=== PATIENT | male | born 1965 | race Caucasian/White ===

== ENCOUNTER 2019-08-03 20:04 | Emergency (ER) | payer OTHER ==
[2019-08-03] MEDS ORDERED: ONDANSETRON 4 MG/2 ML VIAL ONE (20:36)
[2019-08-03] MEDS ORDERED: MORPHINE 4 MG/ML SYR ONE ×2 (20:36→22:41)
[2019-08-03] MEDS ORDERED: NA CHLORIDE 0.9% 2,000 ML ONE (20:36)
[2019-08-03] MEDS ORDERED: KETOROLAC 30 MG/ML INJ ONE (20:36)
[2019-08-03] MEDS ORDERED: DIAZEPAM 10 MG/2 ML INJ SYRINGE ONE (20:36)
[2019-08-03 20:57] LABS: Basophils % 0.2 % (0-1.3); Hematocrit 48.3 % (39.6-49.0); Lymphocytes % 6.8 % (15.3-44.8); MPV 9.8 fL (7.6-11.3); RBC Red Blood Cell Count 5.54 M/uL (4.33-5.43)
[2019-08-03 21:15] LABS: Albumin 3.9 g/dL (3.4-5.0); Bilirubin Direct 0.2 mg/dL (0-0.2); Bilirubin Total 0.7 mg/dL (0.2-1.0); Potassium 4.6 mmol/L (3.5-5.1)
[2019-08-03 21:18] LABS: Blood Morphology Comment NOT SEEN (NOT SEEN); Platelet Estimate ADEQ; Urine White Blood Cell Casts OK
[2019-08-03] MEDS ORDERED: dexAMETHasone 10 MG/ML VIAL ONE (21:22)
--- NOTE | 2019-08-03 21:27 | EDPHYS ---
Physician Documentation [facility] Name: Hawk Guido Age: 54 yrs Sex: Male : 1965 Arrival Date: 08/03/2019 Time: 20:07 Bed 25 Private MD: ED Physician Robbie Holt HPI: 08/03 20:31 This 54 yrs old Male presents to ER via Wheelchair with complaints of Back chito Pain, Fall Injury. 20:31 The patient presents with pain that is acute. The symptoms are located in the low back. chito Onset: The symptoms/episode began/occurred just prior to arrival. The pain radiates to the lumbar area, left low back and right low back. Associated signs and symptoms: Pertinent positives: abdominal pain. The problem was sustained during a fall. Modifying factors: The patient symptoms are alleviated by remaining still, the patient symptoms are aggravated by any movement, bending, coughing, lifting, movement, standing, walking. The patient has not experienced similar symptoms in the past. 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 - Social history:: Smoking status: Patient/guardian denies using tobacco. - Immunization history: Last tetanus immunization: unknown. - Ebola Screening: : No symptoms or risks identified at this time. - Family history:: not pertinent. ROS: 20:31 Eyes: Negative for injury, pain, redness, and discharge, ENT: Negative for injury, chito pain, and discharge, Neck: Negative for injury, pain, and swelling, Cardiovascular: Negative for chest pain, palpitations, and edema, Respiratory: Negative for shortness of breath, cough, wheezing, and pleuritic chest pain, Abdomen/GI: Negative for abdominal pain, nausea, vomiting, diarrhea, and constipation, : Negative for injury, bleeding, discharge, and swelling, MS/Extremity: Negative for injury and deformity, Neuro: Negative for headache, weakness, numbness, tingling, and seizure, Psych: Negative for depression, anxiety, suicide ideation, homicidal ideation, and hallucinations, Allergy/Immunology: Negative for hives, rash, and allergies, Endocrine: Negative for neck swelling, polydipsia, polyuria, polyphagia, and marked weight changes, Hematologic/Lymphatic: Negative for swollen nodes, abnormal bleeding, and unusual bruising. 20:31 Back: Positive for injury or acute deformity, decreased range of motion, pain at rest, pain with movement, radiated pain, of the lumbar area, left low back and right low back. Exam: 20:31 Head/Face: Normocephalic, atraumatic. Eyes: Pupils equal round and reactive to light, chito extra-ocular motions intact. Lids and lashes normal. Conjunctiva and sclera are non-icteric and not injected. Cornea within normal limits. Periorbital areas with no swelling, redness, or edema. ENT: Nares patent. No nasal discharge, no septal abnormalities noted. Tympanic membranes are normal and external auditory canals are clear. Oropharynx with no redness, swelling, or masses, exudates, or evidence of obstruction, uvula midline. Mucous membranes moist. Neck: Trachea midline, no thyromegaly or masses palpated, and no cervical lymphadenopathy. Supple, full range of motion without nuchal rigidity, or vertebral point tenderness. No Meningismus. Chest/axilla: Normal chest wall appearance and motion. Nontender with no deformity. No lesions are appreciated. Cardiovascular: Regular rate and rhythm with a normal S1 and S2. No gallops, murmurs, or rubs. Normal PMI, no JVD. No pulse deficits. Respiratory: Lungs have equal breath sounds bilaterally, clear to auscultation and percussion. No rales, rhonchi or wheezes noted. No increased work of breathing, no retractions or nasal flaring. Abdomen/GI: Soft, non-tender, with normal bowel sounds. No distension or tympany. No guarding or rebound. No evidence of tenderness throughout. Male : Normal genitalia with no discharge or lesions. MS/ Extremity: Pulses equal, no cyanosis. Neurovascular intact. Full, normal range of motion. Neuro: Awake and alert, GCS 15, oriented to person, place, time, and situation. Cranial nerves II-XII grossly intact. Motor strength 5/5 in all extremities. Sensory grossly intact. Cerebellar exam normal. Normal gait. Psych: Awake, alert, with orientation to person, place and time. Behavior, mood, and affect are within normal limits. 20:31 Constitutional: The patient appears in obvious distress, mildly distressed, moderately distressed. 20:31 Back: pain, that is moderate, ROM is painful, with all movement, normal spinal alignment noted, CVA tenderness, is absent, vertebral tenderness, is appreciated at lumbar spine, muscle spasm, is appreciated in the left low back, left mid back, right mid back and right low back. Vital Signs: 20:21 BP 138 / 84; Pulse 93; Resp 18; Temp 98; Pulse Ox 96% on R/A; Weight 94.35 kg; Height 5 lp1 ft. 9 in. (175.26 cm); Pain 10/10; 21:20 BP 129 / 81; Pulse 72; Resp 18; Pulse Ox 95% on 2 lpm NC; aj1 22:53 BP 142 / 81; Pulse 81; Resp 18; Temp 98; Pulse Ox 100% on 2 lpm NC; mg2 20:21 Body Mass Index 30.72 (94.35 kg, 175.26 cm) lp1 [place] Coma Score: 20:24 Eye Response: spontaneous(4). Verbal Response: oriented(5). Motor Response: obeys lp1 commands(6). Total: 15. Trauma Score (Adult): 20:24 Eye Response: spontaneous(1); Verbal Response: oriented(1); Motor Response: obeys lp1 commands(2); Systolic BP: > 89 mm Hg(4); Respiratory Rate: 10 to 29 per min(4); Sierra Score: 15; Trauma Score: 12 21:20 Eye Response: spontaneous(1); Verbal Response: oriented(1); Motor Response: obeys aj1 commands(2); Systolic BP: > 89 mm Hg(4); Respiratory Rate: 10 to 29 per min(4); [place] Score: 15; Trauma Score: 12 MDM: 20:15 Patient medically screened. [facility] 20:35 Data reviewed: vital signs, nurses notes, lab test result(s), radiologic studies, CT chito scan. 08/03 20:31 Order name: Basic Metabolic Panel; Complete Time: 21:20 [facility] 08/03 20:31 Order name: CBC with Diff; Complete Time: 21:20 [facility] 08/03 20:31 Order name: Creatinine for Radiology; Complete Time: 21:20 [facility] 08/03 20:31 Order name: Type And Screen; Complete Time: 21:47 [facility] 08/03 20:31 Order name: Lipase; Complete Time: 21:20 [facility] 08/03 20:31 Order name: LFT's; Complete Time: 21:20 [facility] 08/03 20:31 Order name: Foot Right 3 View XRAY [facility] 08/03 20:31 Order name: CT Traumagram (Head C Spine CAP W Con) [facility] 08/03 21:18 Order name: CBC Smear Scan; Complete Time: 21:20 [facility] 08/03 22:36 Order name: Urine Dipstick--Ancillary (enter results) [facility] 08/03 20:31 Order name: Labs collected and sent; Complete Time: 20:48 [facility] 08/03 20:31 Order name: Urine Dipstick-Ancillary (obtain specimen); Complete Time: 22:43 [facility] Administered Medications: 20:48 Drug: NS 0.9% 1000 ml Route: IV; Rate: 1 bolus; Site: left antecubital; aj1 22:40 Follow up: Response: No adverse reaction; IV Status: Completed infusion; IV Intake: mg2 1000ml 20:49 Drug: TORadol 30 mg Route: IVP; Site: left antecubital; aj1 21:31 Follow up: Response: No adverse reaction aj1 20:49 Drug: morphine 4 mg {Note: RASS score 0 patient is alert.} Route: IVP; Site: left aj1 antecubital; 21:31 Follow up: Response: No adverse reaction; Pain is decreased; RASS: Alert and Calm (0) aj1 20:50 Drug: Zofran 4 mg Route: IVP; Site: left antecubital; aj1 21:32 Follow up: Response: No adverse reaction aj1 20:50 Drug: Valium 5 mg Route: IVP; Site: left antecubital; aj1 21:32 Follow up: Response: No adverse reaction aj1 21:31 Drug: Decadron - Dexamethasone 10 mg Route: IVP; Site: left antecubital; aj1 21:47 Follow up: Response: No adverse reaction aj1 22:43 Drug: NS 0.9% 1000 ml Route: IV; Rate: 1 bolus; Site: left antecubital; mg2 22:43 Follow up: IV Status: Order to discontinue infusion; IV Intake: 200ml mg2 22:51 Drug: morphine 4 mg Route: IVP; Site: left antecubital; mg2 22:52 Follow up: Response: No adverse reaction; administered prior to transfer. mg2 Disposition: 08/03/19 21:26 Transfer ordered to [facility]. Diagnosis are Fall (on) (from) other stairs and steps, Fracture of lumbar vertebra, Contusion of foot - calcaneal, Unspecified kidney failure - insufficency, Elevated white blood cell count, Unstable burst fracture of first lumbar vertebra - lumbar 1. - Reason for transfer: Higher level of care. - Accepting physician is to , trauma. - Condition is Fair. - Problem is new. - Symptoms have improved. Signatures: Dispatcher [employer] Britt Campos RN RN ajRobbie Camejo MD MD cha Therrien, Shelly, CONSUMER EDUCATOR-C CONSUMER EDUCATOR-Csnw Chandni Amaya RN RN lp1 Kulwant Wills RN RN mg2 Corrections: (The following items were deleted from the chart) 21:38 21:26 08/03/2019 21:26 Transfer ordered to [facility]. chito Diagnosis is Fall (on) (from) other stairs and steps; Fracture of lumbar vertebra; Contusion of foot - calcaneal. Reason for transfer: Higher level of care. Accepting physician is to [facility] trauma. Condition is Fair. Problem is new. Symptoms have improved. chito 21:52 21:38 08/03/2019 21:26 Transfer ordered to [facility]. chito Diagnosis is Fall (on) (from) other stairs and steps; Fracture of lumbar vertebra; Contusion of foot - calcaneal; Unspecified kidney failure - insufficency; Elevated white blood cell count. Reason for transfer: Higher level of care. Accepting physician is to , trauma. Condition is Fair. Problem is new. Symptoms have improved. chito 22:56 21:52 08/03/2019 21:26 Transfer ordered to [facility]. mg2 Diagnosis is Fall (on) (from) other stairs and steps; Fracture of lumbar vertebra; Contusion of foot - calcaneal; Unspecified kidney failure - insufficency; Elevated white blood cell count; Unstable burst fracture of first lumbar vertebra - lumbar 1. Reason for transfer: Higher level of care. Accepting physician is to [facility], trauma. Condition is Fair. Problem is new. Symptoms have improved. chito
--- NOTE | 2019-08-03 21:27 | ER ---
Nurse's Notes [facility] Name: Hawk Guido Age: 54 yrs Sex: Male : 1965 Arrival Date: 08/03/2019 Time: 20:07 Bed 25 Private MD: Diagnosis: Fall (on) (from) other stairs and steps;Fracture of lumbar vertebra;Contusion of foot-calcaneal;Unspecified kidney failure-insufficency;Elevated white blood cell count;Unstable burst fracture of first lumbar vertebra-lumbar 1 Presentation: 08/03 20:20 Presenting complaint: Patient states: Was working on roof when ladder slipped, patient lp1 fell off room about 10 feet up, landing on right heel of foot and onto back; Complaint of pain to lower back, pain when repositioning legs, states feeling tight; Denies hitting head. Transition of care: patient was not received from another setting of care. Onset of symptoms was August 03, 2019 at 11:30. Risk Assessment: Do you want to hurt yourself or someone else? Patient reports no desire to harm self or others. Initial Sepsis Screen: Does the patient meet any 2 criteria? No. Patient's initial sepsis screen is negative. Does the patient have a suspected source of infection? No. Patient's initial sepsis screen is negative. Care prior to arrival: None. 20:20 Method Of Arrival: Wheelchair lp1 20:20 Acuity: SHAUN 2 lp1 20:23 Mechanism of Injury: Fall from roof approximately 10 feet. Trauma event details: Injury lp1 occurred in the [facility], Injury occurred: at home. Injury occurred: August 03, 2019 Injury occurred at: 11:30. 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 - Social history:: Smoking status: Patient/guardian denies using tobacco. - Immunization history: Last tetanus immunization: unknown. - Ebola Screening: : No symptoms or risks identified at this time. - Family history:: not pertinent. Screenin:23 Abuse screen: Denies threats or abuse. Denies injuries from another. Nutritional lp1 screening: No deficits noted. Tuberculosis screening: No symptoms or risk factors identified. 22:54 Fall Risk Fall in past 12 months (25 points). IV access (20 points). Gait- Weak (10 mg2 pts.). Primary Survey: 20:20 Exposure/Environment: There is no evidence of uncontrolled external bleeding. aj1 20:23 NO uncontrolled hemorrhage observed. A: The patient is alert. Airway: patent, No lp1 supplemental oxygen in use on arrival. Breathing/Chest: Respiratory pattern: regular, Chest inspection: symmetrical rise and fall of the chest. Circulation: Skin temperature: warm, dry. Disability Alert. 21:20 Reassessment Airway Airway Patent Breathing/Chest Respiratory pattern Regular aj1 Respiratory effort Spontaneous Unlabored Breath sounds Clear Chest inspection Symmetrical Circulation Heart tones Present Pulses Palpable Color Crucible Temperature Warm Dry. Secondary Survey: 20:20 HEENT: No deficits noted. Gastrointestinal: No deficits noted. : No deficits noted. aj1 Musculoskeletal: Circulation, motion, and sensation intact. Assessment: 20:20 General: Appears uncomfortable, Behavior is calm, cooperative, appropriate for age. aj1 Pain: Complains of pain in lumbar area and low back area Pain does not radiate. Pain currently is 10 out of 10 on a pain scale. Quality of pain is described as aching, Alleviated by rest, Aggravated by increased activity, repositioning, weight bearing. Neuro: Level of Consciousness is awake, alert, obeys commands, Oriented to person, place, time, situation. EENT: No signs and/or symptoms were reported regarding the EENT system. Cardiovascular: Patient's skin is warm and dry. Respiratory: Airway is patent Respiratory effort is even, unlabored, Respiratory pattern is regular, symmetrical. GI: No signs and/or symptoms were reported involving the gastrointestinal system. : No signs and/or symptoms were reported regarding the genitourinary system. Derm: No signs and/or symptoms reported regarding the dermatologic system. Skin is pink, warm \T\ dry. normal. Musculoskeletal: Circulation, motion, and sensation intact. Range of motion: intact in all extremities, Reports pain in lumbar area. 20:55 Reassessment: Patient O2 sat dropped to 89-91% on room air after administration of pain aj1 medication. Patient placed on O2 \T\ 2L via nc, O2 sat up to 100% at this time. Patient denies shortness of breath, patient remains awake and alert at this time. Patient states that his pain is diminished and he is feeling more relaxed. 20:57 Reassessment: X-Ray at bedside. aj1 21:00 Reassessment: Patient transported to CT via stretcher. aj1 21:19 Reassessment: Patient transported back to ER bed 25. aj1 21:56 Reassessment: report given to Chloe, ED Nurse of [facility]. patient signed mg2 the transfer form. 22:44 Reassessment: Patient appears in no apparent distress at this time. Patient and/or mg2 family updated on plan of care and expected duration. Pain level reassessed. report given to EMS. patient alert and oriented. pain is 5/10. iv intact. Vital Signs: 20:21 BP 138 / 84; Pulse 93; Resp 18; Temp 98; Pulse Ox 96% on R/A; Weight 94.35 kg; Height 5 lp1 ft. 9 in. (175.26 cm); Pain 10/10; 21:20 BP 129 / 81; Pulse 72; Resp 18; Pulse Ox 95% on 2 lpm NC; aj1 22:53 BP 142 / 81; Pulse 81; Resp 18; Temp 98; Pulse Ox 100% on 2 lpm NC; mg2 20:21 Body Mass Index 30.72 (94.35 kg, 175.26 cm) lp1 [place] Coma Score: 20:24 Eye Response: spontaneous(4). Verbal Response: oriented(5). Motor Response: obeys lp1 commands(6). Total: 15. Trauma Score (Adult): 20:24 Eye Response: spontaneous(1); Verbal Response: oriented(1); Motor Response: obeys lp1 commands(2); Systolic BP: > 89 mm Hg(4); Respiratory Rate: 10 to 29 per min(4); Sierra Score: 15; Trauma Score: 12 21:20 Eye Response: spontaneous(1); Verbal Response: oriented(1); Motor Response: obeys aj1 commands(2); Systolic BP: > 89 mm Hg(4); Respiratory Rate: 10 to 29 per min(4); [place] Score: 15; Trauma Score: 12 ED Course: 20:07 Patient arrived in ED. cl3 20:15 Robbie Holt MD is Attending Physician. chito 20:20 Patient has correct armband on for positive identification. aj1 20:20 Patient maintains SpO2 saturation greater than 95% on room air. Thermoregulation: warm aj1 blanket given to patient. 20:21 Triage completed. lp1 20:21 Arm band placed on. lp1 20:48 Initial lab(s) drawn, by me, sent to lab. Inserted saline lock: 20 gauge in left lt1 antecubital area, using aseptic technique. 20:57 Foot Right 3 View XRAY In Process Unspecified. EDMS 21:12 Britt Meléndez, RN is Primary Nurse. aj1 21:16 No provider procedures requiring assistance completed. aj1 21:34 CT Traumagram (Head C Spine CAP W Con) In Process Unspecified. EDMS 21:55 Patient transferred, IV remains in place. mg2 Administered Medications: 20:48 Drug: NS 0.9% 1000 ml Route: IV; Rate: 1 bolus; Site: left antecubital; aj1 22:40 Follow up: Response: No adverse reaction; IV Status: Completed infusion; IV Intake: mg2 1000ml 20:49 Drug: TORadol 30 mg Route: IVP; Site: left antecubital; aj1 21:31 Follow up: Response: No adverse reaction aj1 20:49 Drug: morphine 4 mg {Note: RASS score 0 patient is alert.} Route: IVP; Site: left aj1 antecubital; 21:31 Follow up: Response: No adverse reaction; Pain is decreased; RASS: Alert and Calm (0) aj1 20:50 Drug: Zofran 4 mg Route: IVP; Site: left antecubital; aj1 21:32 Follow up: Response: No adverse reaction aj1 20:50 Drug: Valium 5 mg Route: IVP; Site: left antecubital; aj1 21:32 Follow up: Response: No adverse reaction aj1 21:31 Drug: Decadron - Dexamethasone 10 mg Route: IVP; Site: left antecubital; aj1 21:47 Follow up: Response: No adverse reaction aj1 22:43 Drug: NS 0.9% 1000 ml Route: IV; Rate: 1 bolus; Site: left antecubital; mg2 22:43 Follow up: IV Status: Order to discontinue infusion; IV Intake: 200ml mg2 22:51 Drug: morphine 4 mg Route: IVP; Site: left antecubital; mg2 22:52 Follow up: Response: No adverse reaction; administered prior to transfer. mg2 Intake: 22:40 IV: 1000ml; Total: 1000ml. mg2 22:43 IV: 200ml; Total: 1200ml. mg2 Output: 22:30 Urine: 50ml (Voided); Total: 50ml. mg2 Outcome: 21:26 ER care complete, transfer ordered by . chito 22:54 Transferred by ground EMS to [facility], Transfer form completed. mg2 22:54 Condition: stable 22:54 Instructed on the need for transfer. 22:54 Patient's length of stay was not longer than 2 hours. 22:56 Patient left the ED. mg2 Signatures: Dispatcher [employer] EDMS Britt Meléndez, RN RN [email or web address] Robbie Holt MD MD cha Pena, Laura, RN RN [email or web address] Kulwant Wills RN RN mg2 Francy Heath Charde cl3
[2019-08-03 23:13] LABS: Urine Blood NEGATIVE (NEG); Urine Glucose NEGATIVE (NEG); Urine Protein 2+ (NEG); Urine Specific Gravity 1.015 (1.005-1.030); Urine pH 5.5 (5.0-7.0)
[2019-08-04 00:43] VITALS: TEMP 98
[2019-08-04 00:46] VITALS: BP 142/81; O2SAT 100
--- NOTE | 2019-08-04 08:34 | RAD REPORT ---
EXAM DESCRIPTION: RAD - Foot Right 3 View - 08/03/2019 8:57 pm CLINICAL HISTORY: Right foot pain status post injury FINDINGS: No fracture or dislocation is seen
--- NOTE | 2019-08-04 10:09 | RAD REPORT ---
EXAM DESCRIPTION: CT - Head C Spine Mina Rogers - 08/04/2019 7:00 am TECHNIQUE: Ct Head and Cervical Spine Without Intravenous Contrast CT Chest, Abdomen and Pelvis With Intravenous Contrast CLINICAL HISTORY: The patient is 54 years old and is Male; Pain; lower back pain TECHNIQUE: Axial computed tomography images of the head and cervical spine without contrast as well as chest, abdomen and pelvis with intravenous contrast. Sagittal and coronal reformatted images wer e created and reviewed. This CT exam was performed using one or more of the following dose reductio n techniques: automated exposure control, adjustment of the mA and/or kV according to patient size, and/or use of iterative reconstruction technique. COMPARISON: None. FINDINGS: HEAD: Small rounded hypodensity is noted in the left caudate head. Mild prominence of the cerebral sulci. No hydrocephalus. Paranasal sinuses are clear. Globes and orbits are within normal limits. Mild multilevel disc space narrowing. CERVICAL SPINE: No acute fracture or subluxation. Bone mineralization is normal. Mild multilevel disc space narrowing . Multilevel anterior osteophytosis. Prevertebral paraspinal soft tissues are within normal limits. CHEST: LUNGS: No focal consolidation. Scattered atelectasis or scarring in the lower lobes and lingula. PLEURAL SPACE: Unremarkable. No significant effusion. No pneumothorax. HEART: Mild prominence of the ventricular system. Confluent periventricular and scattered subcortical white matter hypodensities. No significant pericardial effusion. THYROID: Visualized thyroid is normal. ABDOMEN: LIVER: Unremarkable. No mass. GALLBLADDER AND BILE DUCTS: Unremarkable. No calcified stones. No ductal dilation. PANCREAS: Unremarkable. No ductal dilation. No mass. SPLEEN: Unremarkable. No splenomegaly. ADRENALS: Unremarkable. No mass. KIDNEYS AND URETERS: Possible bilateral small renal cysts measuring up to 7 mm in the superior patricio e of the right kidney. No hydronephrosis. No solid mass. STOMACH AND BOWEL: Unremarkable. No obstruction. No mucosal thickening. PELVIS: APPENDIX: The appendix is seen and is within normal limits. BLADDER: Unremarkable. No mass. REPRODUCTIVE: Unremarkable as visualized. CHEST, ABDOMEN and PELVIS: INTRAPERITONEAL SPACE: Mastoid air cells are well pneumatized. No significant fluid collection. BONES/JOINTS: Burst fracture deformity of the L1 vertebral body with approximately 30% vertebral b dal[place] height loss and mild retropulsion of the superior posterior corner resulting in mild canal narrow ing. Multilevel anterior osteophytes throughout the cervical spine. No dislocation. SOFT TISSUES: Small fat-containing umbilical hernia. VASCULATURE: Unremarkable. No aortic aneurysm. LYMPH NODES: Unremarkable. No enlarged lymph nodes. IMPRESSION: 1. No acute intracranial abnormality. 2. No acute cervical spine fracture or subluxation. 3. Burst fracture deformity of the L1 vertebral body with approximately 30% vertebral body height l oss and mild retropulsion of the superior posterior corner resulting in mild canal narrowing. MRI l umbar spine is recommended for further characterization. 4. Mild cerebral volume loss, moderate small vessel ischemic changes and prior left caudate head la cunar infarct. If clinical concern for acute ischemia, consider MRI brain without contrast for furthe r evaluation. THIS REPORT CONTAINS FINDINGS THAT MAY BE CRITICAL TO PATIENT'S CARE: The findings were verbally discussed via telephone conference with Dr. Robbie Holt. by Dr. Rebecca zamora on 08/03/2019 9:50 PM [employer] F[employer]. The results were acknowledged and understood. Electronically signed by: Guillaume Rodriguez DO 08/03/2019 9:52 PM B[employer] F[employer] Due to temporary technical issues with the PACS/Fluency reporting system, reports are being signed by the in house radiologist as a courtesy to ensure prompt reporting. The interpreting radiologist is f ully responsible for the content of the report.
== END 2019-08-03 22:56 | disposition short-term general hospital (02) ==
LOC: ER 20:04
DX: S32.012A Unstable burst fracture of first lumbar vertebra, initial encounter for closed fracture (principal); S90.31XA Contusion of right foot, initial encounter; D72.829 Elevated white blood cell count, unspecified; N28.9 Disorder of kidney and ureter, unspecified; I10 Essential (primary) hypertension; E78.5 Hyperlipidemia, unspecified; W10.9XXA Fall (on) (from) unspecified stairs and steps, initial encounter; Y93.9 Activity, unspecified; Y92.9 Unspecified place or not applicable
CPT/HCPCS: 96361; 85025; 80048; 36415; 86900; 86850; 86901; 80076; 81003; 83690; 70450; 72125; 71260; 74177; 73630; 96375; 96374; 99285; Q9967; J3360; J1100; J7030; J2405